=== PATIENT | female | born 1945 | race Caucasian/White ===

== ENCOUNTER 2019-05-13 14:37 | Emergency (ER) | payer MEDICARE ==
[~2019-05-13] VITALS: Ht 164.6 cm; Wt 107.4 kg
--- NOTE | 2019-05-13 15:40 | ED Cardiac General ---
History of Present Illness General Chief Complaint: Cardiac/General Problems Stated Complaint: HIGH BP Nursing Triage Note: Patient reports she took her blood pressure at [facility] today and had a reading of 226/111. Patient states she has no complaints at this time other than the high blood pressure. History of Present Illness Date Seen by Provider: May 13, 2019 Time Seen by Provider: 14:45 Initial Comments The patient is a 73-year-old female with a history of hypertension, hyperlipidemia, some degree of heart failure. She is on lisinopril and metoprolol for blood pressure control. She presents with concern for asymptomatic elevated blood pressure out in the community. The patient is visiting her daughter here in [address] and does live in [facility] and follow for her cardiology and other care at that hospital. She was at the pharmacy picking up medicines and decided to take her blood pressure and the read was 226/111. She was concerned by this and decided to come in for evaluation. Our blood pressures here are consistently much below that number with pressures in the 160s to 180s systolic and diastolic numbers which are much more reassuring than what was seen at the pharmacy. Patient denies any symptoms and specifically denies nausea or vomiting, headache, focal weakness, numbness, tingling, neck stiffness, vision changes, shortness of breath or chest pain, abdominal pain, flank pain, back pain, decreased urination. She feels well and ambulated in with a narrow, steady gait and has no medical complaints at this time. She reports compliance with her home BP and other medicines. Allergies and Home Medications Allergies Coded Allergies: No Known Drug Allergies (Unverified , 05/13/19) Patient Home Medication List Home Medication List Reviewed: Yes Review of Systems Review of Systems Constitutional: see HPI All Other Systems Reviewed Negative Unless Noted: Yes (Negative excepted noted.) Past Fiicdds-Isunkz-Oxtyfj Hx Past Med/Social Hx: Reviewed Nursing Past Med/Soc Hx Patient Social History Alcohol Use: Denies Use Recreational Drug Use: No Smoking Status: Never a Smoker 2nd Hand Smoke Exposure: No Recent Foreign Travel: No Contact w/Someone Who Travel: No Recent Infectious Disease Expo: No Recent Hopitalizations: No Physical Abuse: No Sexual Abuse: No Mistreated: No Fear: No Seasonal Allergies Seasonal Allergies: No Past Medical History Surgeries: No Respiratory: No Cardiac: Yes Hypertension Neurological: Yes Stroke Genitourinary: No Gastrointestinal: No Musculoskeletal: No Endocrine: No HEENT: No Cancer: No Psychosocial: No Integumentary: No Family Medical History Reviewed Nursing Family Hx Physical Exam Vital Signs Vital Signs - First Documented 05/13/19 14:45 Temp 36.2 Pulse 73 Resp 22 B/P (MAP) 200/79 (119) Pulse Ox 95 O2 Delivery Room Air Capillary Refill : Less Than 3 Seconds Height, Weight, BMI Height: '" Weight: lbs. oz. kg; 39.00 BMI Method: General Appearance: No Apparent Distress Other comments This is an elderly female appearing nontoxic and in no acute distress. Head is normocephalic and atraumatic. Neck is supple and nontender. Oropharynx is moist. Lungs are clear to auscultation in all stations. There is a normal S1 and S2 without rubs or gallops and capillary refills appropriate, less than 2 seconds globally. Abdomen is soft, nontender and nondistended. Skin is warm and dry without cyanosis or clubbing. There is 1+ pitting edema of the BLEs which patient states is baseline for her. Psychiatrically, the patient demonstrates appropriate mood and affect and is alert. Neurologically, patient is alert and oriented 4, moves all extremities equally and ambulates with a narrow, steady gait. No lateralizing deficits are noted. Progress/Results/Core Measures Results/Orders Vital Signs/I&O 05/13/19 14:45 Temp 36.2 Pulse 73 Resp 22 B/P (MAP) 200/79 (119) Pulse Ox 95 O2 Delivery Room Air Blood Pressure Mean: 119 POS Progress Progress Note : Time: 15:38 Progress Note Long conversation with patient and her daughter about asymptomatic elevated blood pressure. No indication for further testing or treatment here in the emergency department given asymptomatic high blood pressures and reassuring examination. Patient also has a reassuring EKG. We will prescribe a few clonidine tablets for the patient to take if blood pressure is significantly elevated and I have counseled her to keep a blood pressure journal and to follow-up in the next 1-2 days with her primary care physician in the office to discuss next steps in care regarding her elevated blood pressures. She understands that if she feels worse instead of better or develops other new symptoms of concern that she should return right away to the emergency department for reevaluation. All questions are answered. Comment Sinus rhythm, no acute ST elevation or depression, rate 68, KS 169, QRS 102, QTC 498, EP interpretation. Departure Impression Primary Impression: Benign essential hypertension Disposition: 01 HOME, SELF-CARE Condition: Stable Departure-Patient Inst. Patient Instructions: High Blood Pressure in Adults Add. Discharge Instructions: Follow-up with your doctor in the clinic in the next 1-2 days for a discussion of next best steps in care for your blood pressure. Keep a blood pressure journal as discussed to bring to your follow-up clinic appointment with her doctor. You may take a clonidine pill as prescribed for blood pressure elevated above either 200 systolic (top number) or 100 diastolic (bottom number). Return to the emergency department right away for worsening symptoms or other new symptoms of concern. Scripts Clonidine HCl (Clonidine HCl) 0.1 Mg Tablet 0.1 MG PO BID for high blood pressure, #8 TAB Prov: KRYSTAL MISHRA MD 05/13/19 KRYSTAL MISHRA MD May 13, 2019 15:39 POS
[2019-05-13] MEDS ORDERED: CLON0.1T PO (15:42)
[2019-05-13 15:50] VITALS: BP 173/72
== END 2019-05-13 15:50 | disposition home or self-care (01) ==
LOC: ER FS 14:39
DX: I10 Essential (primary) hypertension (principal); E78.5 Hyperlipidemia, unspecified; Z86.73 Personal history of transient ischemic attack (TIA), and cerebral infarction without residual deficits
CPT/HCPCS: 93005; 99283